=== PATIENT | female | born 1960 | race Caucasian/White ===

== ENCOUNTER 2023-07-07 09:39 | Outpatient (CLI) | payer BC, SELFPAY | END 2023-07-07 09:40 | disposition home or self-care (01) | LOC: NFLDREF 07-08 07:59 | PROVIDERS: PCP Family Medicine; Referring Provider Family Medicine; Visit Provider Family Medicine | DX: Z00.00 Encounter for general adult medical examination without abnormal findings (principal); R63.5 Abnormal weight gain; E78.5 Hyperlipidemia, unspecified; R73.03 Prediabetes; E66.9 Obesity, unspecified; Z13.29 Encounter for screening for other suspected endocrine disorder | CPT/HCPCS: 80053; 80061; 84443 ==